=== PATIENT | female | born 1995 | race African-American/Black ===

== ENCOUNTER 2017-08-16 14:21 | Emergency (ER) | payer SELFPAY ==
[~2017-08-16] VITALS: Ht 160 cm; Wt 49.5 kg
[~2017-08-16 14:21] MED LIST: AMOXICILLIN 8751 TAB PO; ANAPROX DS550 MG PO; DOXYCYCLINE 10100 MG PO; NO HOME MEDICATIONS; NORCO 325 MG-51 TAB PO; TYLENOL #3 301 UDTAB PO
[2017-08-16 14:22] VITALS: BP 139/90; PULSE 83; TEMP 97.6
[2017-08-16] MEDS ORDERED: AMOXICILLIN875 MG PO (15:17)
== END 2017-08-16 15:23 | disposition home or self-care (01) ==
LOC: COL.ER 14:21
DX: H66.91 Otitis media, unspecified, right ear (principal); F17.210 Nicotine dependence, cigarettes, uncomplicated